=== PATIENT | female | born 2000 | race Caucasian/White ===

== ENCOUNTER 2020-03-29 22:17 | Emergency (ER) | payer OTHER ==
[2020-03-29 23:41] LABS: Urine Blood TRACE (NEG); Urine Glucose NEGATIVE (NEG); Urine Protein NEGATIVE (NEG); Urine Specific Gravity >1.030 (1.005-1.030)
[2020-03-29 23:43] LABS: Urine Culture Reflex Order NOT NEEDED
[2020-03-29 23:44] LABS: Urine Bacteria <20 /HPF (<20); Urine RBC <5 /HPF (NONE SEEN); Urine Urothelial Cells <5 /HPF (NONE SEEN)
--- NOTE | 2020-03-29 23:52 | ER ---
Nurse's Notes [facility] Name: Brenda Giles Age: 20 yrs Sex: Female : 2000 Arrival Date: 03/29/2020 Time: 22:21 Bed 17 Private MD: Diagnosis: Vaginal pain Presentation: 03/29 22:28 Chief complaint: Patient states: Reports having chlamydia 2 weeks ago. Took the [facility] medications. Still reports foul smelling odor and vaginal pain since. Wants to be check for foreign body, none known. Coronavirus screen: Proceed with normal triage. Patient denies a cough. Patient denies shortness of breath or difficulty breathing. Patient denies measured and/or subjective temperature greater than 100.4F prior to today's visit. Patient denies travel on a cruise ship or to a country the [facility] currently lists as an affected area. Patient denies contact with known and/or suspected case of COVID-19. Ebola Screen: Patient denies travel to an Ebola-affected area in the 21 days before illness onset. Initial Sepsis Screen: Does the patient meet any 2 criteria? No. Patient's initial sepsis screen is negative. Does the patient have a suspected source of infection? No. Patient's initial sepsis screen is negative. Risk Assessment: Do you want to hurt yourself or someone else? Patient reports no desire to harm self or others. Onset of symptoms was March 14, 2020. 22:28 Method Of Arrival: Ambulatory [facility] 22:28 Acuity: MICHAEL 4 ll1 Historical: - Allergies: 22:31 No Known Allergies; ll1 - PMHx: 22:31 None; ll1 - PSHx: 22:31 None; ll1 - Immunization history:: Adult Immunizations up to date. - Social history:: Smoking status: Reported history of juuling and/or vaping. Patient/guardian denies using alcohol, street drugs. Screenin:55 Abuse screen: Denies threats or abuse. Nutritional screening: No deficits noted. ea Tuberculosis screening: No symptoms or risk factors identified. Fall Risk None identified. Assessment: 23:03 General: Appears in no apparent distress. Behavior is calm, cooperative, appropriate ea for age. Pain: Denies pain. Neuro: Level of Consciousness is awake, alert, obeys commands, Oriented to person, place, time, situation. Respiratory: Airway is patent Respiratory effort is even, unlabored, Respiratory pattern is regular, symmetrical. Derm: Skin is pink, warm \T\ dry. Musculoskeletal: Circulation, motion, and sensation intact. 03/30 00:03 Reassessment: Patient and/or family updated on plan of care and expected duration. Pain ea level reassessed. Patient is alert, oriented x 3, equal unlabored respirations, skin warm/dry/pink. Discharge instruction given to patient,verbalized the understanding of instruction. Pt left ED ambulatory tolerated well. Vital Signs: 03/29 22:28 BP 140 / 90; Pulse 80; Resp 17; Temp 98.5; Pulse Ox 98% ; Pain 7/10; ll1 23:33 BP 129 / 60; Pulse 80; Resp 18; Pulse Ox 98% ; ea ED Course: 22:21 Patient arrived in ED. cl3 22:31 Triage completed. ll1 22:32 Arm band placed on Patient placed in an exam room, on a stretcher. ll1 22:37 Ana Reese RN is Primary Nurse. ea 22:37 Gwendolyn Colin FNP-C is PHCP. snw 22:37 Sam Evans MD is Attending Physician. snw 23:03 Patient has correct armband on for positive identification. Placed in gown. Bed in low ea position. Call light in reach. 23:35 Assist provider with pelvic exam: Set up pelvic tray. Performed by Gwendolyn MACEDO Patient tolerated well. 03/30 00:04 Patient did not have IV access during this emergency room visit. ea Administered Medications: 00:02 Drug: DiFLUcan 200 mg Route: PO; ea 00:05 Follow up: Response: Medication administered at discharge. ea Outcome: 03/29 23:52 Discharge ordered by . snw 03/30 00:04 Discharged to home ambulatory. ea Condition: stable Discharge instructions given to patient, Instructed on discharge instructions, follow up and referral plans. Demonstrated understanding of instructions, follow-up care. 00:04 Patient left the ED. ea Signatures: Gwendolyn Colin FNP-C FNP-Csnw Ana Reese RN RN ea Lewis, Charde cl3 Fuentes Waldrop RN RN ll1
--- NOTE | 2020-03-29 23:52 | EDPHYS ---
Physician Documentation [facility] Name: Brenda Giles Age: 20 yrs Sex: Female : 2000 Arrival Date: 03/29/2020 Time: 22:21 Bed 17 Private MD: ED Physician Sam Evans HPI: 03/29 23:30 This 20 yrs old Female presents to ER via Ambulatory with complaints of Object Stuck In snw Vagina. 23:30 Onset: The symptoms/episode began/occurred at an unknown time. Associated signs and snw symptoms: Pertinent positives: pt states she didn't put anything in her vagina, finished tx for chlamydia 5 days ago, states tenderness at mons and foul vaginal odor. Because pt felt she smelled, she used a douche. Pain has increased since that time. The patient has not experienced similar symptoms in the past. It is unknown whether or not the patient has recently seen a physician. Historical: - Allergies: 22:31 No Known Allergies; ll1 - PMHx: 22:31 None; ll1 - PSHx: 22:31 None; ll1 - Immunization history:: Adult Immunizations up to date. - Social history:: Smoking status: Reported history of juuling and/or vaping. Patient/guardian denies using alcohol, street drugs. ROS: 23:27 Constitutional: Negative for fever, chills, and weight loss, Eyes: Negative for injury, snw pain, redness, and discharge, ENT: Negative for injury, pain, and discharge, Neck: Negative for injury, pain, and swelling, Cardiovascular: Negative for chest pain, palpitations, and edema, Respiratory: Negative for shortness of breath, cough, wheezing, and pleuritic chest pain, Abdomen/GI: Negative for abdominal pain, nausea, vomiting, diarrhea, and constipation, Back: Negative for injury and pain, : Negative for injury, bleeding, and swelling, + foul smell per pt and partner MS/Extremity: Negative for injury and deformity, Skin: Negative for injury, rash, and discoloration, Neuro: Negative for headache, weakness, numbness, tingling, and seizure, Psych: Negative for depression, anxiety, suicide ideation, homicidal ideation, and hallucinations. Exam: 23:27 Constitutional: This is a well developed, well nourished patient who is awake, alert, snw and in no acute distress. Head/Face: Normocephalic, atraumatic. Eyes: Pupils equal round and reactive to light, extra-ocular motions intact. Lids and lashes normal. Conjunctiva and sclera are non-icteric and not injected. Cornea within normal limits. Periorbital areas with no swelling, redness, or edema. ENT: Nares patent. No nasal discharge, no septal abnormalities noted. Tympanic membranes are normal and external auditory canals are clear. Oropharynx with no redness, swelling, or masses, exudates, or evidence of obstruction, uvula midline. Mucous membranes moist. Neck: Trachea midline, no thyromegaly or masses palpated, and no cervical lymphadenopathy. Supple, full range of motion without nuchal rigidity, or vertebral point tenderness. No Meningismus. Chest/axilla: Normal chest wall appearance and motion. Nontender with no deformity. No lesions are appreciated. Cardiovascular: Regular rate and rhythm with a normal S1 and S2. No gallops, murmurs, or rubs. Normal PMI, no JVD. No pulse deficits. Respiratory: Lungs have equal breath sounds bilaterally, clear to auscultation and percussion. No rales, rhonchi or wheezes noted. No increased work of breathing, no retractions or nasal flaring. Abdomen/GI: Soft, non-tender, with normal bowel sounds. No distension or tympany. No guarding or rebound. No evidence of tenderness throughout. Back: No spinal tenderness. No costovertebral tenderness. Full range of motion. Pelvic Exam: Normal external genitalia. Speculum exam with closed cervical os, light whitish mucoid discharge, no bleeding noted. Bimanual exam with normal adnexa, no adnexal or cervical motion tenderness. Normal uterus. Skin: Warm, dry with normal turgor. Normal color with no rashes, no lesions, and no evidence of cellulitis. MS/ Extremity: Pulses equal, no cyanosis. Neurovascular intact. Full, normal range of motion. Neuro: Awake and alert, GCS 15, oriented to person, place, time, and situation. Cranial nerves II-XII grossly intact. Motor strength 5/5 in all extremities. Sensory grossly intact. Cerebellar exam normal. Normal gait. Psych: Awake, alert, with orientation to person, place and time. Behavior, mood, and affect are within normal limits. Vital Signs: 22:28 BP 140 / 90; Pulse 80; Resp 17; Temp 98.5; Pulse Ox 98% ; Pain 7/10; ll1 23:33 BP 129 / 60; Pulse 80; Resp 18; Pulse Ox 98% ; ea Procedures: 23:32 Performed pelvic, pt tolerated with mild discomfort, os with whitish, mucoid dc, no snw bleeding, no noted foreign body,. MDM: 22:43 Patient medically screened. snw 23:54 Data reviewed: vital signs, nurses notes. Data interpreted: Pulse oximetry: on room air snw is 98 %. Interpretation: normal. Counseling: I had a detailed discussion with the patient and/or guardian regarding: the historical points, exam findings, and any diagnostic results supporting the discharge/admit diagnosis, lab results, the need for outpatient follow up, to return to the emergency department if symptoms worsen or persist or if there are any questions or concerns that arise at home. Special discussion: I have referred the patient to see his PCP for further evaluation of high blood pressure. Based on the history and exam findings, there is no indication for further emergent testing or inpatient evaluation. I discussed with the patient/guardian the need to see the OB Gyne specialist for further evaluation of the symptoms. I discussed with the patient/guardian the need to see the primary care provider for further evaluation of the symptoms. 03/29 22:42 Order name: Urine Culture snw 03/29 22:42 Order name: Urine Microscopic Only; Complete Time: 23:47 snw 03/29 23:35 Order name: Urine Dipstick--Ancillary (enter results); Complete Time: 23:47 mw2 03/29 23:35 Order name: Urine --Ancillary (enter results); Complete Time: 23:47 mw2 03/29 22:42 Order name: Setup-Pelvic Exam; Complete Time: 23:21 snw 03/29 22:42 Order name: Urine Test (obtain specimen); Complete Time: 23:21 snw 03/29 22:42 Order name: Urine Dipstick-Ancillary (obtain specimen); Complete Time: 23:21 snw Administered Medications: 03/30 00:02 Drug: DiFLUcan 200 mg Route: PO; ea 00:05 Follow up: Response: Medication administered at discharge. ea Disposition: 03:53 Co-signature as Attending Physician, Sam Evans MD I agree with the assessment and kdr plan of care. Disposition: 03/29/20 23:52 Discharged to Home. Impression: Vaginal pain. - Condition is Stable. - Discharge Instructions: Pelvic Pain, Female, How to Take a Sitz Bath, Vaginal Yeast Infection, Adult, Pelvic Exam, Pelvic Rest. - Medication Reconciliation Form, Thank You Letter, Antibiotic Education, Prescription Opioid Use form. - Follow up: Emergency Department; When: As needed; Reason: Worsening of condition. Follow up: Private Physician; When: 2 - 3 days; Reason: Recheck today's complaints, Continuance of care, Re-evaluation by your physician. - Notes: Use baking soda in sitz bath to change pH. Avoid douches. Pelvic rest x 1 week. Signatures: Dispatcher [employer] EDNJ Sam Evans MD MD kdr Therrien, Shelly, ASSOCIATE MARKETING MANAGER-C ASSOCIATE MARKETING MANAGER-Csnw Ana Reese RN RN Fuentes Rodriguez RN RN ll1 Corrections: (The following items were deleted from the chart) 00:04 03/29 23:52 03/29/2020 23:52 Discharged to Home. Impression: Vaginal pain. Condition is ea Stable. Forms are Medication Reconciliation Form, Thank You Letter, Antibiotic Education, Prescription Opioid Use. Follow up: Emergency Department; When: As needed; Reason: Worsening of condition. Follow up: Private Physician; When: 2 - 3 days; Reason: Recheck today's complaints, Continuance of care, Re-evaluation by your physician. snw
[2020-03-30] MEDS ORDERED: FLUCONAZOLE 100 MG TAB ONE (00:02)
[2020-03-30 00:18] VITALS: BP 140/90; TEMP 98.5; O2SAT 98
[2020-04-03 18:24] LABS: C.trachomatis RNA,TMA Not Detected (Not Detected)
== END 2020-03-30 00:04 | disposition home or self-care (01) ==
LOC: ER 22:17
DX: R10.2 Pelvic and perineal pain (principal)
CPT/HCPCS: 81003; 81015; 81025; 87086; 87088; 87490; 87590; 99283

== ENCOUNTER 2020-05-28 16:21 | Emergency (ER) | payer OTHER, SELFPAY ==
--- OUTSIDE RECORDS SUMMARY | 2020-05-28 17:15 | XMS REPORT | Continuity of Care Document ---
:2000 Author Organization [facility] t Address [address] [place] [address] Care Team Providers Name Role Phone Unavailable Unavailable Unavailable Payers Payer Name Policy Type Policy Number Effective Date Expiration Date S ource Problems This patient has no known problems. Allergies, Adverse Reactions, Alerts Allergy Allergy Status Severity Reaction(s) Onset Inactive Treating Comm ents Source Name Type Date Date Clinician No Known DA Active U 2018-0 [facility]ie 8[facility]12 [facility] e [facility] Medications This patient has no known medications. Procedures This patient has no known procedures. Results This patient has no known results.
[2020-05-28 18:47] LABS: Urine Blood NEGATIVE (NEG); Urine Glucose NEGATIVE (NEG); Urine Protein 1+ (NEG); Urine pH 8.5 (5.0-7.0)
--- NOTE | 2020-05-28 18:48 | ER ---
Nurse's Notes [facility] Name: Brenda Giles Age: 20 yrs Sex: Female : 2000 Arrival Date: 05/28/2020 Time: 16:25 Bed 23 Private MD: Diagnosis: Dysuria;Urinary tract infection, site not specified Presentation: 05/28 16:26 Chief complaint: Patient states: vaginal discharge and foul odor x 1 month. Was seen sv here a month ago and an exam was done and was discharged. Coronavirus screen: Proceed with normal triage. Patient denies a cough. Patient denies shortness of breath or difficulty breathing. Patient denies measured and/or subjective temperature greater than 100.4F prior to today's visit. Patient denies travel on a cruise ship or to a country the [facility] currently lists as an affected area. Patient denies contact with known and/or suspected case of COVID-19. Ebola Screen: No symptoms or risks identified at this time. Risk Assessment: Do you want to hurt yourself or someone else? Patient reports no desire to harm self or others. Onset of symptoms was March 2020. 16:26 Method Of Arrival: Ambulatory sv 16:26 Acuity: MICHAEL 4 sv 16:28 Initial Sepsis Screen: Does the patient meet any 2 criteria? No. Patient's initial sv sepsis screen is negative. Does the patient have a suspected source of infection? No. Patient's initial sepsis screen is negative. Triage Assessment: 16:30 General: Appears in no apparent distress. comfortable, Behavior is calm, cooperative, sv appropriate for age. Neuro: Level of Consciousness is awake, alert, obeys commands, Oriented to person, place, time, situation, Gait is steady. Respiratory: Respiratory effort is even, unlabored. TRAVEL GUIDE: 18:19 1, Full Term 1, Premature 0, 0, Living 1 yaakov 19:08 LMP N/A - control method ll1 Historical: - Allergies: 16:28 No Known Allergies; sv - PMHx: 16:28 None; sv - PSHx: 16:28 None; sv - Immunization history:: Adult Immunizations up to date. - Social history:: Smoking status: Patient reports the use of cigarette tobacco products, denies chronic smoking, but will smoke occasionally. - Family history:: not pertinent. Screenin:08 Abuse screen: Denies threats or abuse. Nutritional screening: No deficits noted. ll1 Tuberculosis screening: No symptoms or risk factors identified. Fall Risk None identified. Total Bone Fall Scale indicates No Risk (0-24 pts). Assessment: 18:20 General: Appears in no apparent distress. Behavior is calm, cooperative, appropriate ll1 for age. Pain: Denies pain. Neuro: No deficits noted. Cardiovascular: No deficits noted. Respiratory: No deficits noted. GI: No deficits noted. : Vaginal discharge is Reports vaginal bleeding that is brown, foul vaginal odor for 1 month. 19:00 Reassessment: Patient appears in no apparent distress at this time. No changes from ll1 previously documented assessment. Patient and/or family updated on plan of care and expected duration. Pain level reassessed. Patient is alert, oriented x 3, equal unlabored respirations, skin warm/dry/pink. Waiting for shot time before discharge. 19:24 Reassessment: Patient appears in no apparent distress at this time. Patient and/or wh family updated on plan of care and expected duration. Pain level reassessed. Patient is alert, oriented x 3, equal unlabored respirations, skin warm/dry/pink. Vital Signs: 16:28 BP 120 / 71; Pulse 81; Resp 16; Temp 97.8; Pulse Ox 97% ; Weight 81.65 kg; Height 5 ft. sv 6 in. (167.64 cm); 19:24 BP 118 / 85; Pulse 67; Resp 18; Pulse Ox 99% on R/A; wh 16:28 Body Mass Index 29.05 (81.65 kg, 167.64 cm) sv ED Course: 16:25 Patient arrived in ED. mr 16:26 Arm band placed on. sv 16:28 Triage completed. sv 17:26 Dillon Cardona MD is Attending Physician. yaakov 17:38 Fuentes Waldrop RN is Primary Nurse. ll1 18:48 Boris Bojorquez MD is Referral Physician. yaakov 19:08 Patient has correct armband on for positive identification. Bed in low position. Call ll1 light in reach. Side rails up X 1. 19:09 Report given to HIRA Schultz. ll1 19:09 Assist provider with pelvic exam: Performed by Dillon Cardona MD Patient tolerated well.ll1 19:25 Patient did not have IV access during this emergency room visit. Administered Medications: 18:59 Drug: Zithromax 1 grams Route: PO; ll1 19:24 Follow up: Response: No adverse reaction 18:59 Drug: Rocephin (cefTRIAXone) 500 mg Route: IM; Site: left gluteus; ll1 19:24 Follow up: Response: No adverse reaction Outcome: 18:48 Discharge ordered by . yaakov 19:25 Discharged to home ambulatory. 19:25 Condition: stable 19:25 Discharge instructions given to patient, Instructed on discharge instructions, follow up and referral plans. medication usage, POC Demonstrated understanding of instructions, follow-up care, medications, POC Prescriptions given X 2. 19:25 Patient left the ED. Signatures: Viviana Deluca RN RN Dillon Kirkpatrick MD MD cha Rivera, Francisca mr Huynh, Marc Fuentes Waldrop RN RN ll1 Corrections: (The following items were deleted from the chart) 16:31 16:28 Pulse 81bpm; Resp 16bpm; Pulse Ox 97%; Temp 97.8F; 81.65 kg; Height 5 ft. 6 in.; sv BMI: 29.0; sv 16:32 16:26 Chief complaint: Patient states: vaginal discharge and odor x 1 month. Was seen here a month ago and an exam was done and was discharged.
--- NOTE | 2020-05-28 18:49 | EDPHYS ---
[facility] Name: Brenda Giles Age: 20 yrs Sex: Female : 2000 Arrival Date: 05/28/2020 Time: 16:25 Bed 23 Private MD: MICHA Physician Dillon Cardona HPI: 05/28 18:19 This 20 yrs old Female presents to ER via Ambulatory with complaints of yaakov Vaginal problem. 18:19 The patient presents with pelvic pain, that is located in/on the suprapubic area. yaakov Onset: The symptoms/episode began/occurred 2 day(s) ago. Modifying factors: The symptoms are alleviated by nothing, the symptoms are aggravated by nothing. Associated signs and symptoms: The patient has no apparent associated signs or symptoms. Severity of symptoms: At their worst the symptoms were mild, in the emergency department the symptoms are unchanged. The patient is sexually active, reportedly has a single partner. The patient's method of control includes nothing. The patient has experienced similar episodes in the past, several times. 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 - Social history:: Smoking status: Patient reports the use of cigarette tobacco products, denies chronic smoking, but will smoke occasionally. - Family history:: not pertinent. ROS: 18:19 Constitutional: Negative for fever, chills, and weight loss, Eyes: Negative for injury, yaakov pain, redness, and discharge, ENT: Negative for injury, pain, and discharge, Neck: Negative for injury, pain, and swelling, Cardiovascular: Negative for chest pain, palpitations, and edema, Respiratory: Negative for shortness of breath, cough, wheezing, and pleuritic chest pain, Abdomen/GI: Negative for abdominal pain, nausea, vomiting, diarrhea, and constipation, Back: Negative for injury and pain, MS/Extremity: Negative for injury and deformity, Skin: Negative for injury, rash, and discoloration, Neuro: Negative for headache, weakness, numbness, tingling, and seizure, Psych: Negative for depression, anxiety, suicide ideation, homicidal ideation, and hallucinations, Allergy/Immunology: Negative for hives, rash, and allergies, Endocrine: Negative for neck swelling, polydipsia, polyuria, polyphagia, and marked weight changes, Hematologic/Lymphatic: Negative for swollen nodes, abnormal bleeding, and unusual bruising. 18:19 : Positive for vaginal discharge. Exam: 18:19 Constitutional: This is a well developed, well nourished patient who is awake, alert, yaakov and in no acute distress. Head/Face: Normocephalic, atraumatic. Eyes: Pupils equal round and reactive to light, extra-ocular motions intact. Lids and lashes normal. Conjunctiva and sclera are non-icteric and not injected. Cornea within normal limits. Periorbital areas with no swelling, redness, or edema. ENT: Nares patent. No nasal discharge, no septal abnormalities noted. Tympanic membranes are normal and external auditory canals are clear. Oropharynx with no redness, swelling, or masses, exudates, or evidence of obstruction, uvula midline. Mucous membranes moist. Neck: Trachea midline, no thyromegaly or masses palpated, and no cervical lymphadenopathy. Supple, full range of motion without nuchal rigidity, or vertebral point tenderness. No Meningismus. Chest/axilla: Normal chest wall appearance and motion. Nontender with no deformity. No lesions are appreciated. Cardiovascular: Regular rate and rhythm with a normal S1 and S2. No gallops, murmurs, or rubs. Normal PMI, no JVD. No pulse deficits. Respiratory: Lungs have equal breath sounds bilaterally, clear to auscultation and percussion. No rales, rhonchi or wheezes noted. No increased work of breathing, no retractions or nasal flaring. Abdomen/GI: Soft, non-tender, with normal bowel sounds. No distension or tympany. No guarding or rebound. No evidence of tenderness throughout. Back: No spinal tenderness. No costovertebral tenderness. Full range of motion. Skin: Warm, dry with normal turgor. Normal color with no rashes, no lesions, and no evidence of cellulitis. MS/ Extremity: Pulses equal, no cyanosis. Neurovascular intact. Full, normal range of motion. Neuro: Awake and alert, GCS 15, oriented to person, place, time, and situation. Cranial nerves II-XII grossly intact. Motor strength 5/5 in all extremities. Sensory grossly intact. Cerebellar exam normal. Normal gait. Psych: Awake, alert, with orientation to person, place and time. Behavior, mood, and affect are within normal limits. 18:19 : CVA tenderness, is absent, Pelvic Exam: External exam: is normal, Speculum exam: no bleeding is noted, no cervicitis, os that is closed, bimanual exam reveals normal findings, no cervical motion tenderness, os that is closed, normal sized uterus, no adnexa tenderness or masses bilaterally, discharge, clear, the nurse was present for the exam. Vital Signs: 16:28 BP 120 / 71; Pulse 81; Resp 16; Temp 97.8; Pulse Ox 97% ; Weight 81.65 kg; Height 5 ft. sv 6 in. (167.64 cm); 19:24 BP 118 / 85; Pulse 67; Resp 18; Pulse Ox 99% on R/A; wh 16:28 Body Mass Index 29.05 (81.65 kg, 167.64 cm) sv MDM: 17:26 Patient medically screened. yaakov 18:42 Differential diagnosis: nonspecific abdominal pain, urinary tract infection. Data yaakov reviewed: vital signs, nurses notes, lab test result(s), urinalysis. Data interpreted: quality assurance monitor chassis: not applicable for this patient encounter. rate is 81 beats/min, rhythm is regular, Pulse oximetry: on room air is 97 %. Counseling: I had a detailed discussion with the patient and/or guardian regarding: the historical points, exam findings, and any diagnostic results supporting the discharge/admit diagnosis, lab results, the need for outpatient follow up, for definitive care, an OB/Gyne specialist. ED course: pelvic rest. follow up manager nursing home. 05/28 18:37 Order name: Urine Dipstick--Ancillary (enter results) eb 05/28 18:37 Order name: Urine --Ancillary (enter results) eb 05/28 18:13 Order name: Pelvic Exam Setup; Complete Time: 18:25 yaakov 05/28 18:13 Order name: Urine Dipstick-Ancillary (obtain specimen); Complete Time: 18:25 yaakov 05/28 18:13 Order name: Urine Test (obtain specimen); Complete Time: 18:25 yaakov Administered Medications: 18:59 Drug: Zithromax 1 grams Route: PO; ll1 19:24 Follow up: Response: No adverse reaction 18:59 Drug: Rocephin (cefTRIAXone) 500 mg Route: IM; Site: left gluteus; ll1 19:24 Follow up: Response: No adverse reaction Disposition: 05/28/20 18:48 Discharged to Home. Impression: Dysuria, Urinary tract infection, site not specified. - Condition is Stable. - Discharge Instructions: Dysuria, Sexually Transmitted Disease, [id number], Urinary Tract Infection, Adult, Urinary Tract Infection, Adult, [id number]. - Prescriptions for Cipro 250 mg Oral Tablet - take 1 tablet by ORAL route every 12 hours; 14 tablet. Flagyl 500 mg Oral Tablet - take 1 tablet by ORAL route every 12 hours for 7 days; 14 tablet. - Medication Reconciliation Form, Thank You Letter, Antibiotic Education, Prescription Opioid Use form. - Follow up: Private Physician; When: 2 - 3 days; Reason: Recheck today's complaints, Continuance of care, Re-evaluation by your physician. Follow up: Boris Bojorquez MD; When: 2 - 3 days; Reason: Recheck today's complaints, Re-evaluation by your physician. - Problem is new. - Symptoms have improved. Signatures: Dispatcher [employer] Viviana Perez, HIRA RN Dillon Kirkpatrick MD MD cha Habalo, Winsy wh Lewis, Lynsay, RN RN ll1 Corrections: (The following items were deleted from the chart) 18:48 18:48 05/28/2020 18:48 Discharged to Home. Impression: Dysuria; Urinary tract yaakov infection, site not specified. Condition is Stable. Forms are Medication Reconciliation Form, Thank You Letter, Antibiotic Education, Prescription Opioid Use. Follow up: Private Physician; When: 2 - 3 days; Reason: Recheck today's complaints, Continuance of care, Re-evaluation by your physician. Problem is new. Symptoms have improved. [facility] 19:25 18:48 05/28/2020 18:48 Discharged to Home. Impression: Dysuria; Urinary tract wh infection, site not specified. Condition is Stable. Forms are Medication Reconciliation Form, Thank You Letter, Antibiotic Education, Prescription Opioid Use. Follow up: Private Physician; When: 2 - 3 days; Reason: Recheck today's complaints, Continuance of care, Re-evaluation by your physician. Follow up: Boris Bojorquez; When: 2 - 3 days; Reason: Recheck today's complaints, Re-evaluation by your physician. Problem is new. Symptoms have improved. yaakov
[2020-05-28] MEDS ORDERED: LIDOCAINE 1% MPF 5 ML VIAL ONE (18:57)
[2020-05-28] MEDS ORDERED: AZITHROMYCIN 1 GM PACKET ONE (18:58)
[2020-05-28] MEDS ORDERED: CEFTRIAXONE 500 MG/VIAL ONE (18:58)
[2020-05-28 19:42] VITALS: TEMP 97.8
[2020-05-28 19:44] VITALS: BP 118/85; O2SAT 99
== END 2020-05-28 19:25 | disposition home or self-care (01) ==
LOC: ER 16:21
DX: N39.0 Urinary tract infection, site not specified (principal); Z72.0 Tobacco use
CPT/HCPCS: 81003; 81025; 96372; 99283; J0696